=== PATIENT | female | born 1985 | race Caucasian/White ===

== ENCOUNTER 2017-07-04 16:25 | Emergency (ER) | payer OTHER ==
[2017-07-04 16:34] VITALS: BP 116/56; PULSE 76; O2SAT 99
--- NOTE | 2017-07-04 16:44 | ERPHSYRPT ---
- History of Present Illness Time Seen by Provider: 07/04/17 16:42 Source: patient Exam Limitations: no limitations Patient Subjective Stated Complaint: patient has hives on hand and wrist and on face she is 24 weeks Triage Nursing Assessment: pt alert and oriented x3, ambulates well, gait is stable, skin warm to touch dry and intact, patient face is flushed with hives on face. lung sounds clear, bowel sounds present x4, pulses equal bialteral radius and pedal Physician History: patient has hives on hand and wrist and on face she is 24 weeks , patient face is flushed with hives on face. Timing/Duration: today Quality: itchy Severity: mild Location: face, hands Possible Causes: no cause identified Modifying Factors: Improves With: antihistamine Allergies/Adverse Reactions: amoxicillin [Amoxicillin] Allergy (Severe, Verified 12/10/14 15:21) hives,itch,sob iv dye Adverse Reaction (Uncoded 11/21/13 08:20) Hx Tetanus, Diphtheria Vaccination/Date Given: Yes Hx Influenza Vaccination/Date Given: No Hx Pneumococcal Vaccination/Date Given: No Immunizations Up to Date: Yes - Review of Systems Constitutional: No Symptoms Eyes: No Symptoms Ears, Nose, & Throat: No Symptoms Respiratory: No Symptoms Cardiac: No Symptoms Abdominal/Gastrointestinal: No Symptoms Genitourinary Symptoms: No Symptoms Musculoskeletal: No Symptoms Skin: Rash - Past Medical History Pertinent Past Medical History: Yes Neurological History: Migraines ENT History: No Pertinent History Cardiac History: No Pertinent History Respiratory History: Asthma, Bronchitis Endocrine Medical History: No Pertinent History Musculoskeletal History: Other GI Medical History: Crohns Disease, Gallbladder Disease, Hernia History: No Pertinent History Psycho-Social History: Depression Female Reproductive Disorders: Cervical Cancer, Menstrual Problems Other Medical History: pinched nerves, lumbar, insulin resistant d/t polycystic ovarian - Past Surgical History Past Surgical History: Yes Neuro Surgical History: No Pertinent History Cardiac: No Pertinent History Respiratory: No Pertinent History Gastrointestinal: No Pertinent History Genitourinary: No Pertinent History Musculoskeletal: Other Female Surgical History: No Pertinent History Other Surgical History: left shoulder arthroscopy - Social History Smoking Status: Former smoker How long have you smoked: 6 months Exposure to second hand smoke: Yes Drug Use: none Patient Lives Alone: No - Female History Expected Date of Delivery: 10/22/17 Gestational Age: 23 - Nursing Vital Signs Nursing Vital Signs: Initial Vital Signs O2 Sat by Pulse Oximetry 98 07/04/17 16:26 Pain Scale Pain Intensity 0 - Physical Exam General Appearance: no apparent distress Eye Exam: PERRL/EOMI Ears, Nose, Throat Exam: normal ENT inspection Neck Exam: normal inspection Respiratory Exam: normal breath sounds Cardiovascular Exam: regular rate/rhythm Neurologic Exam: alert, oriented x 3 Skin Exam: rash SpO2: 99 Oxygen Delivery: Room Air - Course Nursing assessment & vital signs reviewed: Yes - Progress Progress: unchanged Counseled pt/family regarding: diagnosis, need for follow-up - Departure Time of Disposition: 16:44 Departure Disposition: Home Clinical Impression: Hives Condition: Stable Critical Care Time: No Referrals: RICARDO ALEXANDER MD [Primary Care Provider] - Instructions: Rash Additional Instructions: RASH 1. Depending on the reason for the rash, the instructions will differ. 2. If an antibiotic has been prescribed, take it as directed until gone. 3. If anti-fungals or shampoos are prescribed, use only as directed and follow specific instructions on package container. 4. Avoid hot showers/baths, as this may increase itching. 5. Calamine lotion or Aveeno Oatmeal baths may help itching. 6. See your family physician if these signs or symptoms persist for more than four days.
== END 2017-07-04 17:07 | disposition home or self-care (01) ==
LOC: ED 16:25
DX: L50.9 Urticaria, unspecified (principal)
CPT/HCPCS: 99282; 99283

== ENCOUNTER 2020-06-04 13:44 | Emergency (ER) | payer MEDICAID, OTHER ==
[2020-06-04 14:08] VITALS: BP 144/95
--- NOTE | 2020-06-04 14:23 | ERPHSYRPT ---
- History of Present Illness Time Seen by Provider: 06/04/20 14:10 Source: patient Exam Limitations: no limitations Patient Subjective Stated Complaint: pt reports cough, sore throat for 1 day, states that she has history of bronchitis and recently rode in the bed of a [employer] for several hours. pt denies known COVID exposure. Triage Nursing Assessment: pt is aox3, afebrile, pupils perrl, resps easy and non labored, no cough noted on exam, radial pulses strong, cap refill < 3 seconds, pt skin pink warm dry. pt appears in no distress at this time. Physician History: 35 years old female presented in the ER with chief complaint of minimal clear to yellow thick sputum along with nasal congestion/runny nose and sore throat since yesterday. No fever or chills reported. Patient relates this to sitting at the bed of truck in cold open air for several hour when [place] car broke in the [place] 3 days ago. Denies any positive sick contact. Patient is sent in here by work for COVID 19 rule out.LMP 5 days ago Timing/Duration: yesterday, sudden, worse Cough Quality/Degree: moderate, productive cough, sputum Associated Symptoms: cough, nasal congestion, nasal drainage, sore throat, No chest pain/soreness, No muscle aches, No shortness of breath Allergies/Adverse Reactions: amoxicillin [Amoxicillin] Allergy (Severe, Verified 06/04/20 14:08) hives,itch,sob iv dye Adverse Reaction (Uncoded 06/04/20 14:08) Hx Tetanus, Diphtheria Vaccination/Date Given: Yes Hx Influenza Vaccination/Date Given: No Hx Pneumococcal Vaccination/Date Given: No Immunizations Up to Date: Yes Travel Risk - International Travel Have you traveled outside of the country in past 3 weeks: No - Coronavirus Screening Are you exhibiting any of the following symptoms?: Yes Symptoms: Cough: New Onset Close contact with a COVID-19 positive Pt in past 14-21 Days: No - Review of Systems Constitutional: No Symptoms Eyes: No Symptoms Ears, Nose, & Throat: Nose Discharge, Throat Pain Respiratory: Cough Cardiac: No Symptoms Abdominal/Gastrointestinal: No Symptoms Genitourinary Symptoms: No Symptoms Musculoskeletal: No Symptoms Skin: No Symptoms Neurological: No Symptoms Psychological: No Symptoms Endocrine: No Symptoms Hematologic/Lymphatic: No Symptoms Immunological/Allergic: No Symptoms - Past Medical History Pertinent Past Medical History: Yes Neurological History: Migraines ENT History: No Pertinent History Cardiac History: No Pertinent History Respiratory History: Asthma, Bronchitis Endocrine Medical History: No Pertinent History Musculoskeletal History: Other GI Medical History: Crohns Disease, Gallbladder Disease, Hernia History: No Pertinent History Psycho-Social History: Depression Female Reproductive Disorders: Cervical Cancer, Menstrual Problems Other Medical History: pinched nerves, lumbar, insulin resistant d/t polycystic ovarian - Past Surgical History Past Surgical History: Yes Neuro Surgical History: No Pertinent History Cardiac: No Pertinent History Respiratory: No Pertinent History Gastrointestinal: No Pertinent History Genitourinary: No Pertinent History Musculoskeletal: Other Female Surgical History: No Pertinent History Other Surgical History: left shoulder arthroscopy - Social History Smoking Status: Never smoker How long have you smoked: 6 months Exposure to second hand smoke: Yes Drug Use: none Patient Lives Alone: No - Female History Hx Last Menstrual Period: 05/04/20 Hx Now: No - Nursing Vital Signs Nursing Vital Signs: Initial Vital Signs Temperature 99.4 F 06/04/20 13:50 Pulse Rate 59 L 06/04/20 13:50 Respiratory Rate 20 06/04/20 13:50 Blood Pressure 144/95 06/04/20 13:50 O2 Sat by Pulse Oximetry 100 06/04/20 13:50 Pain Scale Pain Intensity 0 - Physical Exam General Appearance: no apparent distress, alert Eye Exam: PERRL/EOMI, eyes nml inspection Ears, Nose, Throat Exam: pharyngeal erythema, other (Nasal congestion) Neck Exam: normal inspection, non-tender, supple, full range of motion Respiratory Exam: normal breath sounds, lungs clear Cardiovascular Exam: regular rate/rhythm, normal heart sounds Gastrointestinal/Abdomen Exam: soft Extremity Exam: normal inspection, normal range of motion Neurologic Exam: alert, oriented x 3, cooperative Skin Exam: normal color SpO2 Interpretation: normal SpO2: 100 O2 Delivery: Room Air Ordered Tests: Active Orders 24 hr Category Date Time Status CHEST 1 VIEW (PORTABLE) Stat Exams 06/04/20 14:49 Completed Lab/Rad Data: Laboratory Results 06/04/20 Range/Units 14:20 Group A Strep Antibody NOT DETECTED (NEGATIVE) - Progress Progress: unchanged Air Movement: good Progress Note: 06/04/20 15:24 I have obtained rapid strep swab which is negative. Chest x-ray negative for any acute cardiopulmonary findings. Patient is not in any distress and has no fever. COVID-19 testing is obtained and pending. She is advised to practice social distance since her test is pending. It could be just viral URI/cold and recommended supportive care. Discussed signs symptoms of worsening needing return to ER which she seems understanding. Stable for discharge. Blood Culture(s) Obtained: No Antibiotics given: No Counseled pt/family regarding: lab results, diagnosis, need for follow-up - Departure Departure Disposition: Home Clinical Impression: URI with cough and congestion Condition: Stable Critical Care Time: No Referrals: DOCTOR,NO FAMILY [Primary Care Provider] - PILI SCHMTIT [ACTIVE STAFF] - Follow Up with PCP/3 days Instructions: Sore Throat, Adult (DC), Viral Upper Respiratory Infection, Adult (DC) Additional Instructions: Take Tylenol/Mucinex as needed. Follow-up with your primary care physician for reevaluation. Practice social distancing until your COVID-19 testing is back. Return to ER for worsening cough/fever chills/shortness of breath etc.
--- NOTE | 2020-06-04 15:11 | XRAY ---
Indication: Sore throat. Suspect Covid 19. Comparison: None Portable apical lordotic chest demonstrates normal heart and lungs with incidental left midlung calcified granuloma. Bony thorax intact.
[2020-06-04 15:34] VITALS: PULSE 78; O2SAT 97
== END 2020-06-04 15:35 | disposition home or self-care (01) ==
LOC: ED 13:44
DX: J06.9 Acute upper respiratory infection, unspecified (principal); R05 Cough; R09.81 Nasal congestion
CPT/HCPCS: 71045; 87651; 99284; U0003

== ENCOUNTER 2022-11-14 06:00 | Emergency (ER) | payer BC ==
[2022-11-14] MEDS ORDERED: Sodium Chloride 0.9% 1000 ML 1,000 ML IV STA (06:43)
[2022-11-14] MEDS ORDERED: TORAdol 30 mg Injection IV ONE (06:43)
[2022-11-14] MEDS ORDERED: TORAdol 30 mg Injection ONE (06:46)
[2022-11-14] MEDS ORDERED: Sodium Chloride 0.9% 1000 ML 1,000 ML ONE (06:46)
--- NOTE | 2022-11-14 06:47 | ERPHSYRPT ---
- History of Present Illness Historian: patient Exam Limitations: no limitations Patient Subjective Stated Complaint: pt states that last night her lt back started hurting. . has been worse this morning. Triage Nursing Assessment: pt alert and oriented, answers questions approp. pt ambulatory with slow steady gait noted. respirations nonlabored. skin warm and dry. pt reports pain to lt mid and lower back. no tenderness reprted with palpation. pt describes pain as cramping and stabbing. Timing/Duration: yesterday, sudden, worse Activities at Onset: rest Quality: sharpness Abdominal Pain Onset Location: flank Pain Radiation: no radiation Severity of Pain-Max: severe Severity of Pain-Current: moderate Modifying Factors: Worsens With: position Associated Symptoms: denies symptoms Previous symptoms: no prior history Hx Tetanus, Diphtheria Vaccination/Date Given: Yes Hx Influenza Vaccination/Date Given: No Hx Pneumococcal Vaccination/Date Given: No Immunizations Up to Date: Yes <IFRAH LOWE - Last Filed: 11/14/22 06:59> <GIRISH NEVAREZ - Last Filed: 11/14/22 09:52> - History of Present Illness Time Seen by Provider: 11/14/22 06:37 Physician History: 37 years old female presented to the ER with chief complaint of left flank pain since yesterday, sudden onset, moderate to severe sharp, aggravated with movements and certain position, denies associated nausea vomiting or urinary symptoms. No fever or chills reported. Denies any history of back pain or kidney stones. (IFRAH LOWE) Allergies/Adverse Reactions: amoxicillin [Amoxicillin] Allergy (Severe, Verified 11/14/22 06:19) hives,itch,sob iv dye Adverse Reaction (Uncoded 11/14/22 06:19) Home Medications: Pregabalin [Lyrica 100Mg] mg PO TID 11/14/22 [History] Travel Risk - International Travel Have you traveled outside of the country in past 3 weeks: No - Coronavirus Screening Are you exhibiting any of the following symptoms?: No Close contact with a COVID-19 positive Pt in past 14-21 Days: No - Vaccine Status Have you recieved a Covid-19 vaccination: No <IFRAH LOWE - Last Filed: 11/14/22 06:59> - Review of Systems Constitutional: No Symptoms Eyes: No Symptoms Ears, Nose, & Throat: No Symptoms Respiratory: No Symptoms Cardiac: No Symptoms Abdominal/Gastrointestinal: No Symptoms Genitourinary Symptoms: No Symptoms Musculoskeletal: Back Pain Skin: No Symptoms Neurological: No Symptoms Psychological: No Symptoms Endocrine: No Symptoms Hematologic/Lymphatic: No Symptoms Immunological/Allergic: No Symptoms <IFRAH LOWE Filed: 11/14/22 06:59> - Past Medical History Pertinent Past Medical History: Yes Neurological History: Migraines ENT History: No Pertinent History Cardiac History: No Pertinent History Respiratory History: Asthma, Bronchitis Endocrine Medical History: No Pertinent History Musculoskeletal History: Other GI Medical History: Crohns Disease, Gallbladder Disease, Hernia History: No Pertinent History Psycho-Social History: Depression Female Reproductive Disorders: Cervical Cancer, Menstrual Problems Other Medical History: pinched nerves, lumbar, insulin resistant d/t polycystic ovarian - Past Surgical History Past Surgical History: Yes Neuro Surgical History: No Pertinent History Cardiac: No Pertinent History Respiratory: No Pertinent History Gastrointestinal: Cholecystectomy Genitourinary: No Pertinent History Musculoskeletal: Other Female Surgical History: No Pertinent History Other Surgical History: left shoulder arthroscopy, gastric sleeve- 5 yrs, 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 - Social History Smoking Status: Former smoker How long have you smoked: 6 months Exposure to second hand smoke: No Drug Use: none Patient Lives Alone: No - Female History Hx Last Menstrual Period: last month Hx Now: No <IFRAH LOWE Last Filed: 11/14/22 06:59> - Physical Exam General Appearance: no apparent distress, alert Eye Exam: PERRL/EOMI Ears, Nose, Throat Exam: normal ENT inspection Neck Exam: normal inspection, non-tender, supple Respiratory Exam: normal breath sounds, lungs clear Cardiovascular Exam: regular rate/rhythm, normal heart sounds Gastrointestinal/Abdomen Exam: soft, normal bowel sounds, tenderness Back Exam: normal inspection, normal range of motion, CVA tenderness, No vertebral tenderness Extremity Exam: normal inspection, normal range of motion Neurologic Exam: alert, oriented x 3, cooperative Skin Exam: normal color SpO2 Interpretation: normal SpO2: 100 O2 Delivery: Room Air <IFRAH LOWE Last Filed: 11/14/22 06:59> - Nursing Vital Signs Nursing Vital Signs: Initial Vital Signs Temperature 97.2 F 11/14/22 06:06 Pulse Rate 61 01/27/23 06:06 Respiratory Rate 16 11/14/22 06:06 Blood Pressure 158/87 11/14/22 06:06 O2 Sat by Pulse Oximetry 100 11/14/22 06:06 Pain Scale Pain Intensity 4 - Course Nursing assessment & vital signs reviewed: Yes - CT Exams Abdomen/Pelvis CT Interpretation: Tele-radiologist Report (Hepatosplenomegaly, CT otherwise negative) <GIRISH NEVAREZ - Last Filed: 11/14/22 09:52> Ordered Tests: Active Orders 24 hr Category Date Time Status IV Insertion STAT Care 11/14/22 06:43 Active NPO (ED) STAT Care 11/14/22 06:43 Active ABDOMEN AND PELVIS W/0 CONTRAS [CT] Stat Exams 11/14/22 06:43 Completed CBC W DIFF Stat Lab 11/14/22 07:00 Completed CMP Stat Lab 11/14/22 07:00 Completed CULTURE,URINE Stat Lab 11/14/22 06:54 Received HCG,QUALITATIVE URINE Stat Lab 11/14/22 06:54 Completed LIPASE Stat Lab 11/14/22 07:00 Completed UA W/RFX UR CULTURE Stat Lab 11/14/22 06:54 Completed Medication Summary Discontinued Medications Generic Name Dose Route Start Last Admin Trade Name Angela PRN Reason Stop Dose Admin Acetaminophen 975 mg 11/14/22 09:43 Acetaminophen 325 Mg Tablet PO 11/14/22 09:44 STAT ONE Dexamethasone Sodium Phosphate 10 mg 11/14/22 09:44 Dexamethasone Sod Phosphate 10 Mg/Ml IV 11/14/22 09:45 STAT ONE Sodium Chloride 1,000 mls @ 999 mls/hr 11/14/22 06:43 11/14/22 09:18 Sodium Chloride 0.9% 1000 Ml IV 11/14/22 07:43 Infused .Q1H1M STA Infusion Sodium Chloride Confirm 11/14/22 06:46 Sodium Chloride 0.9% 1000 Ml Administered 11/14/22 06:47 Dose 1,000 mls @ ud .ROUTE .STK-MED ONE Ketorolac Tromethamine 30 mg 11/14/22 06:43 11/14/22 06:47 Ketorolac Tromethamine 30 Mg/Ml Inj IV 11/14/22 06:44 30 mg STAT ONE Administration Ketorolac Tromethamine Confirm 11/14/22 06:46 Ketorolac Tromethamine 30 Mg/Ml Inj Administered 11/14/22 06:47 Dose 30 mg .ROUTE .[facility]-MED ONE Lab/Rad Data: Laboratory Result Diagrams 11/14/22 07:00 11/14/22 07:00 Laboratory Results 11/14/22 11/14/22 11/14/22 Range/Units 07:00 07:00 06:54 WBC 9.0 (4.0-10.5) x10^3/uL RBC 4.45 (4.1-5.4) x10^6/uL Hgb 13.0 (12.0-16.0) g/dL Hct 41.4 (35-47) % MCV 93.0 (78-100) fL MCH 29.2 (26-32) pg MCHC 31.4 L (32-36) g/dL RDW 12.4 (11.5-14.0) % Plt Count 260 (150-450) x10^3/uL MPV 10.8 (7.5-11.0) fL Gran % 71.3 H (36.0-66.0) % Immature Gran % (Auto) 0.3 (0.00-0.4) % Nucleat RBC Rel Count 0.0 (0.00-0.1) % Eos # (Auto) 0.09 (0-0.5) x10^3/uL Immature Gran # (Auto) 0.03 (0.00-0.03) x10^3u/L Absolute Lymphs (auto) 1.85 (1.0-4.6) x10^3/uL Absolute Monos (auto) 0.61 (0.0-1.3) x10^3/uL Absolute Nucleated RBC 0.00 (0.00-0.01) x10^3u/L Lymphocytes % 20.5 L (24.0-44.0) % Monocytes % 6.7 (0.0-12.0) % Eosinophils % 1.0 (0.00-5.0) % Basophils % 0.2 (0.0-0.4) % Absolute Granulocytes 6.44 (1.4-6.9) x10^3/uL Basophils # 0.02 (0-0.4) x10^3/uL Sodium 137 (137-145) mmol/L Potassium 3.9 (3.5-5.1) mmol/L Chloride 105 (98-107) mmol/L Carbon Dioxide 28 (22-30) mmol/L Anion Gap 8.0 (5-15) MEQ/L BUN 12 (7-17) mg/dL Creatinine 0.71 (0.52-1.04) mg/dL Estimated GFR > 60.0 ML/MIN Glucose 88 (74-106) mg/dL Calcium 9.1 (8.4-10.2) mg/dL Total Bilirubin 0.40 (0.2-1.3) mg/dL AST 38 H (14-36) U/L ALT 28 (0-35) U/L Alkaline Phosphatase 93 (38-126) U/L Serum Total Protein 8.3 H (6.3-8.2) g/dL Albumin 4.3 (3.5-5.0) g/dL Lipase 54 (23-300) U/L Urine Color (Yellow) Urine Appearance (Clear) Urine pH (4.6-8.0) Ur Specific [place] (1.005-1.030) Urine Protein (Negative) Urine Glucose (UA) (Negative) mg/dL Urine Ketones (Negative) Urine Blood (Negative) Urine Nitrite (Negative) Urine Bilirubin (Negative) Urine Urobilinogen (0.2) mg/dL Ur Leukocyte Esterase (Negative) U Hyaline Cast (Auto) (0-2) /LPF Urine Microscopic RBC (0-5) /HPF Urine Microscopic WBC (0-5) /HPF Ur Epithelial Cells (None Seen) /HPF Calcium Oxalate Crystal (None Seen) /HPF Urine Bacteria (None Seen) /HPF Urine Culture Reflexed (NO) Urine HCG, Qual NEGATIVE (Negative) 11/14/22 Range/Units 06:54 WBC (4.0-10.5) x10^3/uL RBC (4.1-5.4) x10^6/uL Hgb (12.0-16.0) g/dL Hct (35-47) % MCV (78-100) fL MCH (26-32) pg MCHC (32-36) g/dL RDW (11.5-14.0) % Plt Count (150-450) x10^3/uL MPV (7.5-11.0) fL Gran % (36.0-66.0) % Immature Gran % (Auto) (0.00-0.4) % Nucleat RBC Rel Count (0.00-0.1) % Eos # (Auto) (0-0.5) x10^3/uL Immature Gran # (Auto) (0.00-0.03) x10^3u/L Absolute Lymphs (auto) (1.0-4.6) x10^3/uL Absolute Monos (auto) (0.0-1.3) x10^3/uL Absolute Nucleated RBC (0.00-0.01) x10^3u/L Lymphocytes % (24.0-44.0) % Monocytes % (0.0-12.0) % Eosinophils % (0.00-5.0) % Basophils % (0.0-0.4) % Absolute Granulocytes (1.4-6.9) x10^3/uL Basophils # (0-0.4) x10^3/uL Sodium (137-145) mmol/L Potassium (3.5-5.1) mmol/L Chloride (98-107) mmol/L Carbon Dioxide (22-30) mmol/L Anion Gap (5-15) MEQ/L BUN (7-17) mg/dL Creatinine (0.52-1.04) mg/dL Estimated GFR ML/MIN Glucose (74-106) mg/dL Calcium (8.4-10.2) mg/dL Total Bilirubin (0.2-1.3) mg/dL AST (14-36) U/L ALT (0-35) U/L Alkaline Phosphatase (38-126) U/L Serum Total Protein (6.3-8.2) g/dL Albumin (3.5-5.0) g/dL Lipase (23-300) U/L Urine Color Dark Yellow A (Yellow) Urine Appearance Cloudy A (Clear) Urine pH 5.0 (4.6-8.0) Ur Specific [place] >=1.030 A (1.005-1.030) Urine Protein Trace A (Negative) Urine Glucose (UA) Negative (Negative) mg/dL Urine Ketones Trace A (Negative) Urine Blood Negative (Negative) Urine Nitrite Negative (Negative) Urine Bilirubin Small A (Negative) Urine Urobilinogen 1.0 A (0.2) mg/dL Ur Leukocyte Esterase Negative (Negative) U Hyaline Cast (Auto) 3-5 A (0-2) /LPF Urine Microscopic RBC 6-10 A (0-5) /HPF Urine Microscopic WBC 0-2 (0-5) /HPF Ur Epithelial Cells Many A (None Seen) /HPF Calcium Oxalate Crystal 6-10 A (None Seen) /HPF Urine Bacteria Few A (None Seen) /HPF Urine Culture Reflexed YES (NO) Urine HCG, Qual (Negative) - Progress Progress: unchanged <IFRAH LOWE - Last Filed: 11/14/22 06:59> - Progress Counseled pt/family regarding: lab results, diagnosis, need for follow-up, rad results <GIRISH NEVAREZ - Last Filed: 11/14/22 09:52> - Progress Progress Note: 11/14/22 06:59 Care is transferred to Dr. Nevarez at shift change with pending work-up and final reevaluation and disposition (IFRAH LOWE) Patient endorsed to Dr. Nevarez at approximately [address] Nevarez advised to follow- up on CT scan and discharge home if negative. CT scan negative for acute pathology. Hepatosplenomegaly observed. CBC CMP hCG urine culture lipase and urinalysis ordered. Work-up essentially nonremarkable. Patient reassessed. She received Toradol for pain control with some relief. Patient also received normal saline. At this point it appears as though patient's symptoms are mu sculoskeletal in nature. Patient received a 1 g dose of oral Tylenol as well as dexamethasone IV. No indication for further work-up at this time. No urinary tract infection. No significant comorbidity contributing to patient's presentation. Complexity of problem assessed as moderate. Complexity of data reviewed and analyzed is moderate. Risks of complication due to treatment is moderate. Patient voices no other complaints or concerns at this time. She agrees to follow-up with her primary care doctor within 48 hours for evaluation. Portions of this note were created with voice recognition technology. There may be grammatical, spelling, punctuation or sound alike errors 11/14/22 09:47 (GIRISH NEVAREZ) - Departure Critical Care Time: No <IFRAH LOWE - Last Filed: 11/14/22 06:59> - Departure Departure Disposition: Home <GIRISH NEVAREZ - Last Filed: 11/14/22 09:52> - Departure Clinical Impression: Flank pain, Back pain Condition: Stable Referrals: KATE RODRIGUEZ [facility] [Primary Care Provider] - Follow up/PCP as directed Additional Instructions: Discharge/Care Plan DONAL KIRK was seen on 11/14/22 in the Emergency Room. The patient was counseled regarding Diagnosis,Lab results, Imaging studies, need for follow up and when to return to the Emergency Room. Prescriptions given: Discharge Note I have spoken with the patient and/or caregivers. I have explained the patient's condition, diagnosis and treatment plan based on the information available to me at this time. I have answered the patient's and/or caregiver's questions and addressed any concerns. The patient and/or caregivers have as good understanding of the patient's diagnosis, condition and treatment plan as can be expected at this point. The vital signs have been stable. The patient's condition is stable and appropriate for discharge from the emergency department. The patient will pursue further outpatient evaluation with the primary care physician or other designated or consulting physician as outlined in the discharge instructions. The patient and/or caregivers are agreeable to this plan of care and follow-up instructions have been explained in detail. The patient and/or caregivers have received these instruction. The patient/and or caregivers are aware that any significant change in condition or worsening of symptoms should prompt an immediate return to this or the closest emergency department or call 911.
[2022-11-14 07:18] LABS: Absolute Neutrophil Ct (ANC) 6.44 x10^3/uL (1.4-6.9); BASOPHIL % 0.2 % (0.0-0.4); Basophil (Absolute #) 0.02 x10^3/uL (0-0.4); Eosinophil (Absolute #) 0.09 x10^3/uL (0-0.5); Hematocrit 41.4 % (35-47); IMMATURE GRAN # 0.03 x10^3u/L (0.00-0.03); IMMATURE GRAN % 0.3 % (0.00-0.4); Lymphocyte (Absolute #) 1.85 x10^3/uL (1.0-4.6); Lymphocytes % 20.5 % (24.0-44.0); Mean Corpuscular Hemoglobin 29.2 pg (26-32); Mean Corpuscular Hgb Concent. 31.4 g/dL (32-36); Mean Platelet Volume 10.8 fL (7.5-11.0); Monocyte (Absolute #) 0.61 x10^3/uL (0.0-1.3); Monocytes % 6.7 % (0.0-12.0); Neutrophil % 71.3 % (36.0-66.0); Platelet Count 260 x10^3/uL (150-450); Red Blood Count 4.45 x10^6/uL (4.1-5.4); Red Cell Distribution Width 12.4 % (11.5-14.0)
[2022-11-14 07:46] LABS: ALBUMIN 4.3 g/dL (3.5-5.0); ALKALINE PHOSPHATASE 93 U/L (38-126); BLOOD UREA NITROGEN 12 mg/dL (7-17); CHLORIDE 105 mmol/L (98-107); Calcium 9.1 mg/dL (8.4-10.2); Carbon Dioxide 28 mmol/L (22-30); Creatinine 1 0.71 mg/dL (0.52-1.04); EST GLOMERULAR FILTRATION RATE > 60.0 ML/MIN; Glucose 88 mg/dL (74-106); LIPASE 54 U/L (23-300); Potassium 3.9 mmol/L (3.5-5.1); SGOT/AST 38 U/L (14-36); SGPT/ALT 28 U/L (0-35); SODIUM 137 mmol/L (137-145); Total Protein 8.3 g/dL (6.3-8.2)
[2022-11-14 08:04] LABS: Appearance Cloudy (Clear); Bacteria Few /HPF (None Seen); Bilirubin Small (Negative); Blood Negative (Negative); Epithelial Cells Many /HPF (None Seen); Glucose, Urine Negative (Negative); Ketones Trace (Negative); Leukocyte Esterase Negative (Negative); Nitrite Negative (Negative); Protein,Urine Dip Trace (Negative); Specific Gravity >=1.030 (1.005-1.030); WBC 0-2 /HPF (0-5)
[2022-11-14 08:05] LABS: ADD URINE CULTURE? YES (NO)
--- NOTE | 2022-11-14 08:32 | XRAY ---
Indication: Left flank pain. Multiple contiguous axial images obtained through the abdomen and pelvis without contrast using renal stone protocol. Comparison: None Lung bases clear. Heart not enlarged. No renal calculus or evidence for obstructive uropathy in either system. Gastric bypass surgery and cholecystectomy. Noncontrasted stomach and bowel loops appear nonobstructed with normal appendix. No free fluid/air. 20.7 cm fatty hepatomegaly and 13.3 cm splenomegaly. Remaining liver, pancreas, spleen, adrenal glands, kidneys, ureters, bladder, uterus, and aorta are unremarkable for noncontrast exam. Osseous structures intact. No ventral or inguinal hernias. Impression: 1. Negative renal calculus or evidence for obstructive uropathy. 2. Incidental fatty hepatomegaly and splenomegaly. 3. Remaining CT abdomen/pelvis without contrast exam is negative.
[2022-11-14] MEDS ORDERED: TYLENOL 325 MG PO ONE (09:43)
[2022-11-14] MEDS ORDERED: DECADRON 10MG INJ. IV ONE (09:44)
[2022-11-14] MEDS ORDERED: DECADRON 10MG INJ. ONE (09:48)
[2022-11-14] MEDS ORDERED: TYLENOL 325 MG ONE (09:49)
[2022-11-14 10:02] VITALS: BP 120/68; PULSE 61; O2SAT 97
== END 2022-11-14 10:10 | disposition home or self-care (01) ==
LOC: ED 06:00
DX: R10.9 Unspecified abdominal pain (principal); M54.9 Dorsalgia, unspecified; Z79.899 Other long term (current) drug therapy; Z28.310 Unvaccinated for COVID-19
CPT/HCPCS: 36000; 36415; 74176; 80053; 81001; 81025; 83690; 85025; 87086; 96374; 96375; 99284; J1100; J1885; A9270-GY